=== PATIENT | male | born 1955 | race African-American/Black ===

== ENCOUNTER 2016-06-22 10:20 | Emergency (ER) | payer MEDICAID, OTHER ==
[~2016-06-22] VITALS: Ht 177.8 cm; Wt 91.0 kg
[~2016-06-22 10:20] MED LIST: lisinopril
[2016-06-22] MEDS ORDERED: IOHEXOL-300 100 ML BOTTLE ONE (10:34)
[2016-06-22] MEDS ORDERED: SODIUM CHLORIDE 0.9% 10ML VIAL ONE (10:34)
[2016-06-22 12:15] LABS: BASOPHILS % 1.5 % (0.0-2.0); HEMOGLOBIN. 13.1 g/dL (14.0-18.0); LYMPHOCYTES % 17.6 % (20.0-50.0); MEAN CORPUSCULAR HEMOGLOBIN 27.2 pg (28.0-32.0); MEAN CORPUSCULAR HGB CONC 32.9 g/dL (31.0-37.0); MEAN CORPUSCULAR VOLUME 82.8 fL (80.0-94.0); MEAN PLATELET VOLUME 7.6 fl (7.4-10.4); NEUTROPHILS % 72.9 % (40.0-76.0); PLATELET 249 x1000/uL (130-400); RED BLOOD CELL COUNT 4.83 mill/uL (4.7-6.1); RED CELL DISTRIBUTION WIDTH 14.1 % (11.6-14.6); WHITE BLOOD COUNT 7.6 x1000/uL (4.5-11.0)
[2016-06-22 12:22] LABS: CHLORIDE 107 mEq/L (98-107); INDEX HEMOLYSI 1 (1-3); INDEX ICTERIC 1 (1-4); INDEX LIPEMIC 1 (1-3)
[2016-06-22 12:29] LABS: ANION GAP 10; CALCIUM 8.1 mg/dL (8.5-10.1); CARBON DIOXIDE 27 mEq/L (21-32); UREA NITROGEN BLOOD 17 mg/dL (7-21); eGFR > 60 mL/min (>60)
[2016-06-22] MEDS ORDERED: OXYCODONE HCL/ACETAMINOPHEN 5/325MG TABLET PO NR (16:00)
[2016-06-22] MEDS ORDERED: KETOROLAC 60MG/2ML VIAL IM NR (16:00)
[2016-06-22 18:35] VITALS: BP 170/93
== END 2016-06-22 19:52 | disposition home or self-care (01) ==
LOC: ER 10:36
DX: S70.11XA Contusion of right thigh, initial encounter (principal); Z79.899 Other long term (current) drug therapy; I10 Essential (primary) hypertension; F17.200 Nicotine dependence, unspecified, uncomplicated; W22.8XXA Striking against or struck by other objects, initial encounter; Y93.89 Activity, other specified; Y99.9 Unspecified external cause status; Y92.89 Other specified places as the place of occurrence of the external cause
CPT/HCPCS: 36415; 73700; 80048; 85025; 85610; 85730; 93005; 93971; 99285; A4216; Q9967; Z7610; J1885

== ENCOUNTER 2016-11-08 17:41 | Inpatient (IN) | payer MEDICAID ==
[~2016-11-08] VITALS: Ht 180.3 cm; Wt 90.7 kg
[~2016-11-08 17:41] MED LIST changes: +[UNRECOGNIZED DRUG - REMARK]; -lisinopril
[2016-11-08 19:52] LABS: BASOPHILS % 1.3 % (0.0-2.0); EOSINOPHILS % 1.2 % (0.0-5.0); HEMOGLOBIN. 12.2 g/dL (14.0-18.0); LYMPHOCYTES % 34.4 % (20.0-50.0); MEAN CORPUSCULAR HEMOGLOBIN 26.6 pg (28.0-32.0); MEAN CORPUSCULAR VOLUME 80.7 fL (80.0-94.0); MEAN PLATELET VOLUME 7.5 fl (7.4-10.4); MONOCYTES % 10.7 % (2.0-8.0); NEUTROPHILS % 52.4 % (40.0-76.0); PLATELET 427 x1000/uL (130-400); RED BLOOD CELL COUNT 4.58 mill/uL (4.7-6.1); RED CELL DISTRIBUTION WIDTH 13.9 % (11.6-14.6)
[2016-11-08 19:55] LABS: PROTHROMBIN TIME 10.9 sec (9.4-11.6)
[2016-11-08 20:02] LABS: CARBON DIOXIDE 26 mEq/L (21-32); CHLORIDE 108 mEq/L (98-107); TROPONIN I 0.03 ng/mL (0.00-0.04)
[2016-11-08] MEDS ORDERED: IPRATROPIUM/ALBUTEROL 0.5-3(2.5)MG/3ML NEB INH PRN (21:00)
[2016-11-08] MEDS ORDERED: DOCUSATE SODIUM 100MG CAPSULE PO PRN (21:00)
[2016-11-08] MEDS ORDERED: MAGNESIUM/ALUMINUM HYDROXIDE/SIMETHICONE 30ML UDC PO PRN (21:00)
[2016-11-08] MEDS ORDERED: ONDANSETRON HCL 4MG/2ML VIAL IV PRN (21:00)
[2016-11-08] MEDS: ACETAMINOPHEN 325MG TABLET PO PRN (23:13)
[2016-11-08] MEDS: CLONIDINE 0.1MG TABLET PO PRN (23:13)
[2016-11-08] MEDS: ENOXAPARIN 40MG/0.4ML SYR SUBCUT SCH (23:14)
[2016-11-08] MEDS ORDERED: DEXTROSE 50% WATER 50ML SYRINGE IV PRN (23:30)
[2016-11-08 23:31] VITALS: BP 166/96
[2016-11-09] VITALS: BP 155/85
[2016-11-09 01:40] LABS: CARBON DIOXIDE 26 mEq/L (21-32); CHLORIDE 107 mEq/L (98-107); CREATINE KINASE 178 IU/L (39-308); CREATINE KINASE MB FRACTION 1.5 ng/mL (0.5-3.6)
[2016-11-09 04:00] VITALS: BP 137/84
[2016-11-09] MEDS: BLOOD SUGAR DIAGNOSTIC STRIP TEST SCH ×4 (06:13→20:29)
[2016-11-09] MEDS: INSULIN LISPRO 100 UNITS/ML SUBCUT SCH ×4 (06:15→20:29)
[2016-11-09 07:11] LABS: *AMPHETAMINES SCREEN URINE NEGATIVE (NEGATIVE); *BARBITURATES SCREEN URINE NEGATIVE (NEGATIVE); *BENZODIAZEPINES SCREEN URINE NEGATIVE (NEGATIVE); *COCAINE SCREEN URINE PRESUMTIVE POSITIVE (NEGATIVE); CANNABINOID URINE SCREEN NEGATIVE (NEGATIVE); METHADONE URINE SCREEN NEGATIVE (NEGATIVE); OPIATES URINE SCREEN NEGATIVE (NEGATIVE); PHENCYCLIDINE URINE SCREEN NEGATIVE (NEGATIVE)
[2016-11-09] MEDS: ACETAMINOPHEN 325MG TABLET PO PRN (07:38)
[2016-11-09 08:00] VITALS: BP 171/90
[2016-11-09] MEDS: CLONIDINE 0.1MG TABLET PO PRN (08:02)
[2016-11-09] MEDS: ASPIRIN 81MG EC TABLET PO SCH (08:02)
[2016-11-09] MEDS: HYDROCODONE/ACETAMINOPHEN 10/325MG TABLET PO PRN ×2 (08:05→20:37)
[2016-11-09 10:13] LABS: CREATINE KINASE MB FRACTION 1.8 ng/mL (0.5-3.6)
[2016-11-09 12:00] VITALS: BP 143/88
[2016-11-09] MEDS ORDERED: NIFEDIPINE XL 30MG TAB PO SCH (12:30)
[2016-11-09 16:00] VITALS: BP_SYST 114; BP_SYST 146; BP_DIAS 82; BP_DIAS 90
[2016-11-09] MEDS: VERAPAMIL HCL 120MG TABLET PO SCH ×2 (16:32→20:31)
[2016-11-09 20:00] VITALS: BP 106/60
[2016-11-09] MEDS: ENOXAPARIN 40MG/0.4ML SYR SUBCUT SCH (20:30)
[2016-11-10] VITALS: BP 140/91
[2016-11-10 04:00] VITALS: BP 115/66
[2016-11-10] MEDS: BLOOD SUGAR DIAGNOSTIC STRIP TEST SCH ×3 (06:22→16:19)
[2016-11-10] MEDS: INSULIN LISPRO 100 UNITS/ML SUBCUT SCH ×2 (06:23→12:15)
[2016-11-10] MEDS: VERAPAMIL HCL 120MG TABLET PO SCH ×2 (06:34→13:53)
[2016-11-10] MEDS: HYDROCODONE/ACETAMINOPHEN 10/325MG TABLET PO PRN (06:39)
[2016-11-10 07:34] LABS: CARBON DIOXIDE 32 mEq/L (21-32); CHLORIDE 103 mEq/L (98-107)
[2016-11-10 07:40] LABS: BASOPHILS % 1.5 % (0.0-2.0); EOSINOPHILS % 2.3 % (0.0-5.0); HEMATOCRIT. 38.5 % (42.0-52.0); HEMOGLOBIN. 12.6 g/dL (14.0-18.0); LYMPHOCYTES % 47.3 % (20.0-50.0); MEAN CORPUSCULAR HEMOGLOBIN 26.6 pg (28.0-32.0); MEAN CORPUSCULAR VOLUME 81.3 fL (80.0-94.0); MEAN PLATELET VOLUME 7.9 fl (7.4-10.4); MONOCYTES % 13.3 % (2.0-8.0); NEUTROPHILS % 35.6 % (40.0-76.0); PLATELET 399 x1000/uL (130-400); RED BLOOD CELL COUNT 4.74 mill/uL (4.7-6.1); RED CELL DISTRIBUTION WIDTH 13.8 % (11.6-14.6)
[2016-11-10 07:50] VITALS: BP 132/84
[2016-11-10] MEDS: ASPIRIN 81MG EC TABLET PO SCH (08:27)
[2016-11-10] MEDS ORDERED: VERA120T PO (09:25)
[2016-11-10] MEDS ORDERED: ASPI-1158 PO (09:25)
[2016-11-10 12:30] VITALS: BP 136/82
[2016-11-10 14:51] VITALS: BP 136/82
[2016-11-10 15:46] VITALS: BP 156/89
== END 2016-11-10 20:10 | disposition home or self-care (01) | DRG 816 ==
LOC: ER 18:08 → ENRESERV 20:21 → 5WST 20:44 → EDBEDREQTM 20:47 → EDBEDREQ 20:47
PROVIDERS: ADMIT Internal Medicine; ATTEND Internal Medicine
DX: T40.5X1A Poisoning by cocaine, accidental (unintentional), initial encounter (principal); E43 Unspecified severe protein-calorie malnutrition; I20.1 Angina pectoris with documented spasm; I69.354 Hemiplegia and hemiparesis following cerebral infarction affecting left non-dominant side; I10 Essential (primary) hypertension; E03.9 Hypothyroidism, unspecified; F14.10 Cocaine abuse, uncomplicated; F17.210 Nicotine dependence, cigarettes, uncomplicated; Z79.82 Long term (current) use of aspirin; Y92.89 Other specified places as the place of occurrence of the external cause; Z71.51 Drug abuse counseling and surveillance of drug abuser
CPT/HCPCS: 36415; 71010; 80048; 80053; 80061; 80305; 82550; 82553; 82962; 83735; 83880; 84443; 84484; 85025; 85610; 93005; 93306; 93970; 99285; J1650

== ENCOUNTER 2017-05-18 14:59 | Emergency (ER) | payer MEDICAID ==
[~2017-05-18] VITALS: Ht 177.8 cm; Wt 91.0 kg
[~2017-05-18 14:59] MED LIST changes: +ASPI-1158 PO; +VERA120T PO; -[UNRECOGNIZED DRUG - REMARK]
[2017-05-18] MEDS ORDERED: KETOROLAC 30MG/ML VIAL IV STA (16:21)
[2017-05-18] MEDS ORDERED: SODIUM CHLORIDE 0.9% 1,000 ML IV ONE (16:21)
[2017-05-18] MEDS ORDERED: DEXAMETHASONE 10 MG/ML VIAL IV ONE (16:30)
[2017-05-18] MEDS ORDERED: CLINDAMYCIN 600 MG in DEXTROSE 5% WATER 50 ML IV ONE (18:15)
[2017-05-18] MEDS ORDERED: CLINDAMYCIN 600MG PREMIX 50 ML IV SCH (20:15)
[2017-05-18 20:59] LABS: HEMATOCRIT. 43.7 % (42.0-52.0); HEMOGLOBIN. 14.1 g/dL (14.0-18.0); MEAN CORPUSCULAR HEMOGLOBIN 27.1 pg (28.0-32.0); MEAN CORPUSCULAR VOLUME 84.2 fL (80.0-94.0); MEAN PLATELET VOLUME 8.2 fl (7.4-10.4); PLATELET 229 x1000/uL (130-400); RED BLOOD CELL COUNT 5.19 mill/uL (4.7-6.1); RED CELL DISTRIBUTION WIDTH 14.6 % (11.6-14.6)
[2017-05-18 21:05] LABS: PROTHROMBIN TIME 10.6 sec (9.4-11.6)
[2017-05-18 21:07] LABS: CHLORIDE 106 mEq/L (98-107)
[2017-05-18 21:45] LABS: ATYPICAL LYMPHOCYTES 2; PLATELET ESTIMATE NORMAL
[2017-05-18] MEDS ORDERED: CLINDAMYCIN 600 MG in DEXTROSE 5% WATER 50 ML IV SCH (22:00)
[2017-05-19 01:34] VITALS: BP 191/94
[2017-05-19] MEDS ORDERED: CLONIDINE 0.1MG TABLET PO ONE (01:45)
== END 2017-05-19 01:35 | disposition short-term general hospital (02) ==
LOC: ER 16:41
DX: K12.2 Cellulitis and abscess of mouth (principal); I10 Essential (primary) hypertension; F20.9 Schizophrenia, unspecified; Z79.82 Long term (current) use of aspirin; Z86.73 Personal history of transient ischemic attack (TIA), and cerebral infarction without residual deficits
CPT/HCPCS: 36415; 70490; 80053; 85025; 85610; 87040; 96361; 96365; 96366; 96375; 99285; J1100; J1885; J3490; J7030; Z7610; J7060

== ENCOUNTER 2017-06-09 12:42 | Inpatient (IN) | payer MEDICAID ==
[~2017-06-09] VITALS: Ht 180.3 cm; Wt 87.5 kg
[2017-06-09] MEDS ORDERED: SODIUM CHLORIDE 0.9% 500 ML IV ONE (14:24)
[2017-06-09] MEDS ORDERED: MORPHINE SULFATE 4 MG/ML CPJ (NOT FOR IM USE) IV STA (14:24)
[2017-06-09] MEDS ORDERED: ONDANSETRON HCL 4MG/2ML VIAL IV STA (14:24)
[2017-06-09] MEDS ORDERED: METHYLPREDNISOLONE SOD SUCC 125 MG/2 ML VIAL IV STA (14:24)
[2017-06-09] MEDS ORDERED: IPRATROPIUM/ALBUTEROL 0.5-3(2.5)MG/3ML NEB HHN ONE (14:30)
[2017-06-09] MEDS ORDERED: LEVOFLOXACIN 750MG PREMIX 150 ML IV ONE (14:30)
[2017-06-09] MEDS ORDERED: KETOROLAC 15MG/ML VIAL IV ONE (14:30)
[2017-06-09 15:38] LABS: HEMATOCRIT. 37.7 % (42.0-52.0); HEMOGLOBIN. 12.7 g/dL (14.0-18.0); MEAN CORPUSCULAR HEMOGLOBIN 27.9 pg (28.0-32.0); MEAN CORPUSCULAR VOLUME 82.6 fL (80.0-94.0); MEAN PLATELET VOLUME 8.3 fl (7.4-10.4); PLATELET 269 x1000/uL (130-400); RED BLOOD CELL COUNT 4.56 mill/uL (4.7-6.1); RED CELL DISTRIBUTION WIDTH 13.8 % (11.6-14.6)
[2017-06-09 15:44] LABS: CHLORIDE 105 mEq/L (98-107)
[2017-06-09 15:46] LABS: D-DIMER 1.48 mg/L FEU (<0.50); INR 1.1; PROTHROMBIN TIME 11.2 sec (9.4-11.6)
[2017-06-09 15:53] LABS: CREATINE KINASE 218 IU/L (39-308)
[2017-06-09 16:02] LABS: PLATELET ESTIMATE NORMAL
[2017-06-09 16:23] LABS: CLARITY URINE CLEAR (CLEAR); COLOR URINE DARK YELLOW (YELLOW); KETONES URINE NEGATIVE (NEGATIVE); LEUKOCYTE ESTERASE URINE NEGATIVE (NEGATIVE); NITRITE URINE NEGATIVE (NEGATIVE); OCCULT BLOOD URINE NEGATIVE (NEGATIVE); PROTEIN URINE 1+ (NEGATIVE); SPECIFIC GRAVITY URINE 1.026 (1.005-1.030)
[2017-06-09] MEDS ORDERED: FUROSEMIDE 20MG/2ML VIAL IVP ONE (16:30)
[2017-06-09] MEDS ORDERED: ASPIRIN 325MG EC TABLET PO ONE (16:30)
[2017-06-09] MEDS ORDERED: IOHEXOL-350 100 ML BOTTLE ONE (17:38)
[2017-06-09] MEDS ORDERED: IPRATROPIUM/ALBUTEROL 0.5-3(2.5)MG/3ML NEB INH PRN (18:00)
[2017-06-09] MEDS ORDERED: ONDANSETRON HCL 4MG/2ML VIAL IV PRN (18:00)
[2017-06-09] MEDS ORDERED: DIPHENHYDRAMINE 50MG/ML VIAL IV PRN (18:00)
[2017-06-09] MEDS ORDERED: ACETAMINOPHEN 325MG TABLET PO PRN (18:00)
[2017-06-09 20:27] VITALS: BP 165/90
[2017-06-09 22:04] VITALS: BP 165/90
[2017-06-09] MEDS: HYDROCODONE/ACETAMINOPHEN 5/325MG TABLET PO PRN (22:14)
[2017-06-09] MEDS: METHYLPREDNISOLONE SOD SUCC 40 MG/ML VIAL IV SCH (23:08)
[2017-06-09] MEDS: PIPERACILLIN/TAZ 3.375G PREMIX 50 ML IV SCH (23:08)
[2017-06-10] VITALS: BP 158/95
[2017-06-10] MEDS: IPRATROPIUM/ALBUTEROL 0.5-3(2.5)MG/3ML NEB INH SCH ×6 (01:45→20:44)
[2017-06-10 04:00] VITALS: BP 180/119
[2017-06-10 04:23] LABS: *AMPHETAMINES SCREEN URINE NEGATIVE (NEGATIVE); *BARBITURATES SCREEN URINE NEGATIVE (NEGATIVE); *BENZODIAZEPINES SCREEN URINE NEGATIVE (NEGATIVE); *COCAINE SCREEN URINE PRESUMTIVE POSITIVE (NEGATIVE); METHADONE URINE SCREEN NEGATIVE (NEGATIVE); OPIATES URINE SCREEN PRESUMTIVE POSITIVE (NEGATIVE)
[2017-06-10 04:24] LABS: CANNABINOID URINE SCREEN NEGATIVE (NEGATIVE); PHENCYCLIDINE URINE SCREEN NEGATIVE (NEGATIVE)
[2017-06-10] MEDS: PIPERACILLIN/TAZ 3.375G PREMIX 50 ML IV SCH ×2 (04:57→12:33)
[2017-06-10] MEDS: CLONIDINE 0.1MG TABLET PO PRN ×2 (04:57→08:41)
[2017-06-10 06:59] LABS: BASOPHILS % 0.2 % (0.0-2.0); HEMATOCRIT. 37.4 % (42.0-52.0); HEMOGLOBIN. 12.2 g/dL (14.0-18.0); LYMPHOCYTES % 7.6 % (20.0-50.0); MEAN CORPUSCULAR HEMOGLOBIN 26.9 pg (28.0-32.0); MEAN CORPUSCULAR VOLUME 82.7 fL (80.0-94.0); MEAN PLATELET VOLUME 8.5 fl (7.4-10.4); MONOCYTES % 4.5 % (2.0-8.0); NEUTROPHILS % 87.7 % (40.0-76.0); PLATELET 306 x1000/uL (130-400); RED BLOOD CELL COUNT 4.51 mill/uL (4.7-6.1); RED CELL DISTRIBUTION WIDTH 13.9 % (11.6-14.6)
[2017-06-10 07:34] VITALS: BP 146/98
[2017-06-10 08:08] LABS: CHLORIDE 104 mEq/L (98-107)
[2017-06-10 08:16] LABS: HDL CHOLESTEROL 47 mg/dL (40-59); LDL CHOLESTEROL 63 mg/dL (5-100)
[2017-06-10] MEDS: METHYLPREDNISOLONE SOD SUCC 40 MG/ML VIAL IV SCH (08:33)
[2017-06-10] MEDS: HYDROCODONE/ACETAMINOPHEN 5/325MG TABLET PO PRN (08:39)
[2017-06-10] MEDS ORDERED: ACETAMINOPHEN 325MG TABLET PO PRN (09:30)
[2017-06-10] MEDS ORDERED: MAGNESIUM/ALUMINUM HYDROXIDE/SIMETHICONE 30ML UDC PO PRN (09:30)
[2017-06-10] MEDS ORDERED: ONDANSETRON HCL 4MG/2ML VIAL IV PRN (09:30)
[2017-06-10] MEDS ORDERED: ACETAMINOPHEN 650MG/20.3ML UDC GT PRN (09:30)
[2017-06-10] MEDS ORDERED: ACETAMINOPHEN 650MG SUPP PR PRN (09:30)
[2017-06-10] MEDS ORDERED: DOCUSATE SODIUM 100MG CAPSULE PO PRN (09:30)
[2017-06-10] MEDS ORDERED: CLONIDINE 0.1MG TABLET PO PRN (09:30)
[2017-06-10] MEDS ORDERED: IPRATROPIUM/ALBUTEROL 0.5-3(2.5)MG/3ML NEB INH PRN (09:30)
[2017-06-10] MEDS ORDERED: LORAZEPAM 0.5MG TABLET PO PRN (09:30)
[2017-06-10] MEDS ORDERED: HYDROCODONE/ACETAMINOPHEN 5/325MG TABLET PO PRN (09:30)
[2017-06-10] MEDS ORDERED: NA PHOS,M-B/NA PHOS,DI-BA ENEMA 118ML PR PRN (09:30)
[2017-06-10] MEDS: ENOXAPARIN 40MG/0.4ML SYR SUBCUT SCH (10:07)
[2017-06-10] MEDS: GUAIFENESIN 200MG/10ML SUGAR FREE UDC PO PRN ×2 (10:07→21:01)
[2017-06-10 11:44] VITALS: BP 155/95
[2017-06-10] MEDS: LOSARTAN POTASSIUM 50 MG TABLET PO SCH (12:32)
[2017-06-10] MEDS: FUROSEMIDE 40MG/4ML VIAL IVP SCH ×2 (12:33→18:12)
[2017-06-10] MEDS: HYDRALAZINE HCL 25MG TABLET PO SCH ×2 (15:07→21:01)
[2017-06-10 16:00] VITALS: BP 148/88
[2017-06-10] MEDS ORDERED: SODIUM CHLORIDE 10% FOR INH 15ML VIAL NEB INH NR (16:00)
[2017-06-10] MEDS ORDERED: METRONIDAZOLE 500 MG PREMIX 100 ML IV SCH (16:00)
[2017-06-10] MEDS: CEFEPIME 2,000 MG in DEXT 5% WATER 100 ML IV SCH (18:12)
[2017-06-10 20:00] VITALS: BP 136/84
[2017-06-10] MEDS: GUAIFENESIN 600MG ER TABLET PO SCH (20:25)
[2017-06-10] MEDS: AMLODIPINE 5MG TABLET PO SCH (21:02)
[2017-06-10] MEDS: METRONIDAZOLE 500 MG PREMIX 100 ML IV SCH (21:02)
[2017-06-11] VITALS: BP 144/66
[2017-06-11] MEDS: IPRATROPIUM/ALBUTEROL 0.5-3(2.5)MG/3ML NEB INH SCH ×7 (00:05→23:59)
[2017-06-11] MEDS: GUAIFENESIN 200MG/10ML SUGAR FREE UDC PO PRN (03:59)
[2017-06-11 04:00] VITALS: BP 154/79
[2017-06-11] MEDS: HYDROCODONE/ACETAMINOPHEN 10/325MG TABLET PO PRN ×3 (04:00→17:45)
[2017-06-11] MEDS: METRONIDAZOLE 500 MG PREMIX 100 ML IV SCH ×3 (06:15→22:23)
[2017-06-11] MEDS: HYDRALAZINE HCL 25MG TABLET PO SCH (06:16)
[2017-06-11] MEDS: FUROSEMIDE 40MG/4ML VIAL IVP SCH ×2 (06:17→17:39)
[2017-06-11] MEDS: CEFEPIME 2,000 MG in DEXT 5% WATER 100 ML IV SCH ×2 (07:11→17:39)
[2017-06-11 07:41] LABS: BASOPHILS % 0.2 % (0.0-2.0); HEMATOCRIT. 38.9 % (42.0-52.0); LYMPHOCYTES % 10.8 % (20.0-50.0); MEAN CORPUSCULAR HEMOGLOBIN 27.4 pg (28.0-32.0); MEAN CORPUSCULAR VOLUME 81.7 fL (80.0-94.0); MEAN PLATELET VOLUME 8.5 fl (7.4-10.4); MONOCYTES % 6.8 % (2.0-8.0); NEUTROPHILS % 82.2 % (40.0-76.0); PLATELET 409 x1000/uL (130-400); RED BLOOD CELL COUNT 4.76 mill/uL (4.7-6.1); RED CELL DISTRIBUTION WIDTH 13.9 % (11.6-14.6)
[2017-06-11 08:00] VITALS: BP 157/94
[2017-06-11] MEDS: ENOXAPARIN 40MG/0.4ML SYR SUBCUT SCH (08:12)
[2017-06-11] MEDS: LOSARTAN POTASSIUM 50 MG TABLET PO SCH ×2 (08:12→21:50)
[2017-06-11] MEDS: GUAIFENESIN 600MG ER TABLET PO SCH ×2 (08:12→20:49)
[2017-06-11] MEDS: AMLODIPINE 5MG TABLET PO SCH ×2 (08:12→20:49)
[2017-06-11 08:36] LABS: CHLORIDE 104 mEq/L (98-107)
[2017-06-11 08:50] LABS: T4 FREE 1.09 ng/dL (0.76-1.46)
[2017-06-11 12:00] VITALS: BP 154/85
[2017-06-11] MEDS ORDERED: BENZONATATE 100MG CAPSULE PO PRN (13:00)
[2017-06-11] MEDS: HYDRALAZINE HCL 50MG TABLET PO SCH ×2 (14:10→22:32)
[2017-06-11] MEDS ORDERED: ACETAMINOPHEN 650MG/20.3ML UDC PO PRN (15:15)
[2017-06-11 16:00] VITALS: BP 142/89
[2017-06-11 20:00] VITALS: BP 140/86
[2017-06-12] VITALS (8 sets, daily range): BP systolic 132–156; BP diastolic 80–95
[2017-06-12] MEDS: IPRATROPIUM/ALBUTEROL 0.5-3(2.5)MG/3ML NEB INH SCH ×4 (04:03→16:51)
[2017-06-12 06:19] LABS: HEMATOCRIT. 38.2 % (42.0-52.0); HEMOGLOBIN. 12.5 g/dL (14.0-18.0); MEAN CORPUSCULAR HEMOGLOBIN 27.4 pg (28.0-32.0); MEAN CORPUSCULAR VOLUME 83.3 fL (80.0-94.0); MEAN PLATELET VOLUME 8.4 fl (7.4-10.4); PLATELET 387 x1000/uL (130-400); RED BLOOD CELL COUNT 4.58 mill/uL (4.7-6.1); RED CELL DISTRIBUTION WIDTH 13.9 % (11.6-14.6)
[2017-06-12 06:20] LABS: CHLORIDE 104 mEq/L (98-107)
[2017-06-12] MEDS: METRONIDAZOLE 500 MG PREMIX 100 ML IV SCH ×2 (06:36→14:32)
[2017-06-12] MEDS: HYDRALAZINE HCL 50MG TABLET PO SCH ×2 (06:36→14:32)
[2017-06-12] MEDS: CEFEPIME 2,000 MG in DEXT 5% WATER 100 ML IV SCH (09:40)
[2017-06-12] MEDS: FUROSEMIDE 40MG/4ML VIAL IVP SCH ×2 (09:41→17:25)
[2017-06-12] MEDS: AMLODIPINE 5MG TABLET PO SCH (09:41)
[2017-06-12] MEDS: GUAIFENESIN 600MG ER TABLET PO SCH (09:41)
[2017-06-12] MEDS: ENOXAPARIN 40MG/0.4ML SYR SUBCUT SCH (09:42)
[2017-06-12] MEDS: LOSARTAN POTASSIUM 50 MG TABLET PO SCH (09:43)
[2017-06-12] MEDS: GUAIFENESIN 200MG/10ML SUGAR FREE UDC PO PRN (10:06)
[2017-06-12 17:04] LABS: PLATELET ESTIMATE NORMAL
== END 2017-06-12 22:10 | disposition home or self-care (01) | DRG 816 ==
LOC: ER 13:22 → 5WST 16:59 → ENRESERV 19:17
PROVIDERS: ADMIT Internal Medicine; ATTEND Internal Medicine
DX: T40.5X1A Poisoning by cocaine, accidental (unintentional), initial encounter (principal); J96.00 Acute respiratory failure, unspecified whether with hypoxia or hypercapnia; G93.40 Encephalopathy, unspecified; E43 Unspecified severe protein-calorie malnutrition; J18.9 Pneumonia, unspecified organism; I11.0 Hypertensive heart disease with heart failure; I50.30 Unspecified diastolic (congestive) heart failure; I27.20 Pulmonary hypertension, unspecified; J44.0 Chronic obstructive pulmonary disease with (acute) lower respiratory infection; D50.9 Iron deficiency anemia, unspecified; F14.10 Cocaine abuse, uncomplicated; I69.354 Hemiplegia and hemiparesis following cerebral infarction affecting left non-dominant side; F12.90 Cannabis use, unspecified, uncomplicated; F20.9 Schizophrenia, unspecified; I08.1 Rheumatic disorders of both mitral and tricuspid valves; R79.1 Abnormal coagulation profile; Z91.81 History of falling; Z79.82 Long term (current) use of aspirin; Z87.891 Personal history of nicotine dependence
CPT/HCPCS: 36415; 70450; 71045; 71275; 80048; 80053; 80061; 80305; 81003; 82550; 83605; 83690; 83735; 83880; 84439; 84443; 84481; 84484; 85025; 85379; 85610; 87040; 87070; 87086; 92610; 93005; 93306; 93970; 94640; 96361; 96374; 96375; 97162; 97165; 99285; J0692; J1650; J1885; J1940; J1956; J2270; J2405; J2543; J2920; J2930; J3490; J7030; J7040; J7060; J7131; J7620; Q9967